=== PATIENT | female | born 1955 | race Caucasian/White ===

== ENCOUNTER 2016-11-15 18:29 | Emergency (ER) | payer MEDICARE, MEDICAID ==
--- NOTE | ~2016-11-15 | ER ---
PATIENT'S NAME: WINSTON BOB [facility] AGE: 61 Y [address] ROOM: [place] [address] LOCATION: [facility] ADMIT DATE: 11/15/2016 ER/Outpatient Report DISCHARGE DATE: 11/15/2016 FAMILY PHYSICIAN: Carlos Reynoso MD ATTENDING PHYSICIAN: Luke Rao Time of Arrival: Admission date and time documented on the medical record. Time of Evaluation: I saw the patient at 1840 hours. CHIEF COMPLAINT: Clotted left groin AV fistula. HISTORY OF PRESENT ILLNESS: This patient is a 61-year-old female, who has a history of end-stage renal failure, on hemodialysis, Tuesday, Tuesday, Tuesday. The patient lives in [place], [place], and was transferred down to [facility] with problem of a clotted left groin-lower extremity AV fistula. The patient did not get here in time for the interventional radiologist. She was admitted to the Emergency Department and evaluated for transfer to [place] for vascular surgery. The patient has pain in the left leg. Denies any chest pain, shortness of breath, abdominal pain, nausea, vomiting, diarrhea, or urinary complaints. Does not make much urine. No lightheadedness, dizziness, syncope or near syncope. No headache or eyes, ears, nose, throat, neck, or spine pain. No recent colds, coughs, flus, fever, chills, or sweats. No fall or trauma. No skin eruptions or rash. She does have a history of hypothyroidism, but no diabetes. She has a history of autosomal dominant polycystic kidney disease. She has had a right nephrectomy. She has had a failed renal allograft transplantation. No psych issues. No neuro changes. HOME MEDICATIONS: See attached medication list. ALLERGIES: PENICILLIN AND REGLAN. SOCIAL HISTORY: The patient smokes about 5 cigarettes a day. Nondrinker. SIGNIFICANT PAST MEDICAL HISTORY: Atherosclerotic ischemic heart disease with nonobstructive coronary artery disease, autosomal dominant polycystic kidney disease, hypertension, asthma, tobacco abuse, past history of H. pylori, depression, anxiety, allergic rhinitis, end-stage renal disease, anemia of chronic disease, Chan's esophagus, colon polyps, DVT, pulmonary embolism, dyslipidemia, hypothyroidism, and hiatal hernia. PATIENT'S NAME: SHANDREW, [facility] AGE: 61 Y [address] ROOM: [place] [address] LOCATION: ED ADMIT DATE: 11/15/2016 ER/Outpatient Report DISCHARGE DATE: 11/15/2016 FAMILY PHYSICIAN: Carlos Reynoso MD ATTENDING PHYSICIAN: Luke Rao OPERATIONS: AV fistula placement; renal allograft transplantation, failed; right nephrectomy; laparoscopic cholecystectomy; Jack filter placement; esophagogastroduodenoscopy; and colonoscopy. REVIEW OF SYSTEMS: All systems reviewed by me are negative with the exception of those discussed in the history of present illness. PHYSICAL EXAMINATION: VITAL SIGNS: Temperature 98.8, tympanic; pulse 70; respirations 16; blood pressure 141/79; and O2 saturation on room air is 98%. HEAD: Normocephalic. EYES, EARS, NOSE, AND THROAT: Clear. Mucous membranes moist. NECK: Negative. SPINE: Negative. LUNGS: Clear. Good air flow. No rales, rhonchi, or wheezes. HEART: Regular. Pulses are palpable. ABDOMEN: Soft, flat, nondistended, nontender. Good bowel tones. No organomegaly or abnormal mass palpable. EXTREMITIES: The patient has a slightly dusky left lower extremity. Otherwise, other extremities are intact. SKIN: Clear. NEUROVASCULAR: Intact. LABORATORY DATA: No lab was done. See laboratory studies from [facility]. IMPRESSION: 1. Clotted left groin AV fistula. 2. End-stage renal failure, on hemodialysis. 3. Autosomal dominant polycystic kidney disease. 4. Hypertension. 5. Atherosclerotic ischemic heart disease with nonobstructive coronary artery disease. 6. Asthma. 7. Tobacco abuse. 8. Anemia of chronic disease. 9. Dyslipidemia. 10. History of deep vein thrombosis and pulmonary embolism with [place] filter placement. 11. History of depression and anxiety. 12. Hypothyroidism. 13. Hiatal hernia with gastroesophageal reflux. PATIENT'S NAME: [facility] AGE: 61 Y [address] ROOM: [place] [address] LOCATION: ED ADMIT DATE: 11/15/2016 ER/Outpatient Report DISCHARGE DATE: 11/15/2016 FAMILY PHYSICIAN: Carlos Reynoso MD ATTENDING PHYSICIAN: Luke Rao PLAN: I did discuss the patient with Dr. Bowser, vascular surgeon in [place], affiliated with [facility]. Dr. Bowser did accept the patient. We did get bed confirmation. The patient was transferred to [facility] by ground ambulance. I did go over everything with the patient, she understands. All records were faxed to [facility]. MD ABRAM LOMBARDI/bijul /[id number] d: 11/16/16 0147 t: 11/16/16 1829, OUTPATIENT REPORT
[~2016-11-15 18:29] MED LIST: ADVAIR 500-501 EACH INH; ASPIRIN EC81 MG PO; CATAPRES0.3 MG PO; COLACE100 MG PO; COREG12.5 M1 PO; FLONASE 50 MCG/16 GM NOSE; KAYEXALATE15 GM/60 M PO; LEVOTHROID (S125 MCG PO; LIPITOR80 MG PO; METHYL FOLATE PO; MIRALAX PO527 GM/BOT PO; NEXIUM40 MG PO; NITROSTAT 0.40.4 MG SL; NORVASC5 MG PO; PHOSLO667 MG PO; RENVELA800 MG PO; SENSIPAR90 MG PO; SINGULAIR10 MG PO; TAB-A-VITE1 EACH PO; TYLENOL EXTRA500 MG PO; WELLBUTRIN XL150 MG PO; XALATAN2.5 ML OPHTH; XOPENEX HF45 MCG/INH INH; ZOLOFT100 MG PO
== END 2016-11-15 19:39 | disposition disaster alternative care site (69) ==
LOC: GMED 18:30 → GRAD 18:30 → GMED 19:39
DX: T82.868A Thrombosis due to vascular prosthetic devices, implants and grafts, initial encounter (principal); I12.0 Hypertensive chronic kidney disease with stage 5 chronic kidney disease or end stage renal disease; N18.6 End stage renal disease; D63.1 Anemia in chronic kidney disease; I25.10 Atherosclerotic heart disease of native coronary artery without angina pectoris; J45.909 Unspecified asthma, uncomplicated; E78.5 Hyperlipidemia, unspecified; E03.9 Hypothyroidism, unspecified; F17.210 Nicotine dependence, cigarettes, uncomplicated; K44.9 Diaphragmatic hernia without obstruction or gangrene; K21.9 Gastro-esophageal reflux disease without esophagitis; Z86.711 Personal history of pulmonary embolism; Z86.718 Personal history of other venous thrombosis and embolism; Z86.59 Personal history of other mental and behavioral disorders; Z88.1 Allergy status to other antibiotic agents; Z88.8 Allergy status to other drugs, medicaments and biological substances; Z99.2 Dependence on renal dialysis
CPT/HCPCS: C1751